=== PATIENT | female | born 1975 | race Two or more races ===

== ENCOUNTER 2017-10-16 08:16 | Outpatient (CLI) | payer OTHER ==
[~2017-10-16 08:16] MED LIST: PRENATAL CAPLE1 EACH PO; SYNTHROID50 MCG PO; ZANTAC150 M3
== END 2017-10-16 08:25 | disposition home or self-care (01) ==
LOC: LAB 08:16
DX: I70.0 Atherosclerosis of aorta (principal)

== ENCOUNTER 2017-10-16 08:16 | Outpatient (CLI) | payer OTHER | END 2017-10-16 16:48 | disposition home or self-care (01) | LOC: SONOGRAMA 08:16 | DX: R10.2 Pelvic and perineal pain (principal) ==

== ENCOUNTER 2018-08-09 07:41 | Outpatient (CLI) | payer OTHER | END 2018-08-09 07:46 | disposition home or self-care (01) | LOC: LAB 07:41 | DX: N91.1 Secondary amenorrhea (principal) ==

== ENCOUNTER 2018-08-09 08:22 | Outpatient (CLI) | payer OTHER | END 2018-08-09 08:24 | disposition home or self-care (01) | LOC: SONOGRAMA 08:22 | DX: N60.11 Diffuse cystic mastopathy of right breast (principal) ==

== ENCOUNTER 2020-07-28 09:31 | Outpatient (CLI) | payer OTHER | END 2020-07-28 09:56 | disposition home or self-care (01) | LOC: MAMO-SONO 09:31 | PROVIDERS: ATTEND Obstetrics & Gynecology | DX: N83.291 Other ovarian cyst, right side (principal); R92.0 Mammographic microcalcification found on diagnostic imaging of breast; Z12.31 Encounter for screening mammogram for malignant neoplasm of breast ==

== ENCOUNTER 2024-02-13 07:30 | Inpatient (IN) | payer OTHER ==
[2024-02-12 10:51] LABS: HEMATOCRIT 33.2 % (36.0-45.00); HEMOGLOBIN 10.7 g/dL (12.0-15.00); MEAN CELL VOLUME 78.5 fL (80.00-100.00); MEAN CORPUSCULAR HEMOGLOBIN 25.3 pg (27.00-32.0); MEAN CORPUSCULAR HGB CONC 32.2 g/dl (32.0-36.0); PLATELET COUNT 270 K/uL (150-450); RED BLOOD COUNT 4.23 M/uL (4.00-6.00)
[2024-02-12 11:16] LABS: INR 0.98; PARTIAL THROMBOPLASTIN TIME 30.2 SECONDS (22.0-34.0); PROTHROMBIN TIME 10.3 SECONDS (9.0-11.5)
[2024-02-12 11:27] LABS: URINE APPEARANCE Clear; URINE BILIRRUBIN Negative (NEGATIVE); URINE BLOOD Large; URINE COLOR Yellow; URINE GLUCOSE Negative (NEGATIVE); URINE LEUKOCYTE Small; URINE NITRATE Negative; URINE PROTEIN Trace (NEGATIVE); URINE UROBILINOGEN 0.2 E.U./dl
[2024-02-12 11:31] LABS: URINE BACTERIA 241.8 uL (0.0-1933); URINE EPITHELIAL CELLS 2.1 uL (0.0-38.8); URINE RBC 3734.2 uL (0.0-20.8); URINE WBC 105.1 uL (0.0-23.2)
[2024-02-12 11:31] LABS: ALBUMIN 3.6 gm/dL (3.4-5.0); BILIRUBIN TOTAL 0.3 mg/dL (0.3-1.2); CALCIUM 9.2 mg/dL (8.5-10.1); CREATININE SERUM 0.79 mg/dL (0.55-1.02); GFR 78.01; GLOBULINA 3.8 G/DL (2.4-3.5); POTASSIUM 4.33 mEq/L (3.5-5.1); TOTAL PROTEIN 7.4 gm/dL (6.4-8.2)
[~2024-02-13] VITALS: Ht 160 cm; Wt 111.1 kg
[~2024-02-13 07:30] MED LIST changes: +MAXFE CAPLET1 EAC1 PO
[2024-02-20] MEDS ORDERED: CEFAZOLIN SODIUM 1,000 MG VIAL IV ONE (08:15)
[2024-02-20] MEDS ORDERED: POVIDONE-IODINE 118 ML BOTT TOP ONE (08:15)
[2024-02-20] MEDS ORDERED: CITRIC ACID/SODIUM CITRATE 30 ML BLIST.PACK PO ONE (08:15)
[2024-02-20] MEDS ORDERED: SUGAMMADEX SODIUM 200 MG/2 ML VIAL IV ONE (09:45)
[2024-02-20] MEDS ORDERED: MEPERIDINE HCL/PF 50 MG/ML VIAL IM PRN (10:00)
[2024-02-20] MEDS ORDERED: RINGERS SOLUTION,LACTATED 1,000 ML IV SCH (10:00)
[2024-02-20] MEDS ORDERED: ONDANSETRON HCL 2 MG/ML VIAL IV PRN (10:00)
[2024-02-21] MEDS ORDERED: FERROUS SULFATE 325 MG TABLET.EC PO NR (08:00)
[2024-02-21] MEDS ORDERED: OxyCODONE HCL/APAP UD (PERCOCET) PO PRN (08:00)
[2024-02-21 09:23] LABS: HEMATOCRIT 27.1 % (36.0-45.00); MEAN CORPUSCULAR HGB CONC 32.9 g/dl (32.0-36.0); PLATELET COUNT 266 K/uL (150-450); RED BLOOD COUNT 3.43 M/uL (4.00-6.00); RED CELL DISTRIBUTION WIDTH 19.4 % (11.5-14.5)
[2024-02-21 09:26] LABS: HEMOGLOBIN 8.9 g/dL (12.0-15.00); MEAN CORPUSCULAR HEMOGLOBIN 25.9 pg (27.00-32.0)
[2024-02-21] MEDS ORDERED: DIPHENHYDRAMINE HCL 25 MG CAPSULE PO STA (17:25)
[2024-02-21] MEDS ORDERED: ACETAMINOPHEN WITH CODEINE 1 UDTAB TABLET PO SCH (20:00)
[2024-02-21] MEDS ORDERED: KETOROLAC TROMETHAMINE 10 MG TABLET PO SCH (20:00)
[2024-02-22] MEDS ORDERED: BISACODYL 10 MG/SUPP.RECT SUPP.RECT RECTAL NR (08:30)
[2024-02-22] MEDS ORDERED: FERROUS SULFATE 325 MG TABLET.EC PO SCH (09:00)
[2024-02-22] MEDS ORDERED: FAMOtidine 20 MG TABLET PO SCH (09:45)
== END 2024-02-23 12:56 | disposition home or self-care (01) | DRG 743 ==
LOC: ADM 07:30 → O/R 02-20 06:21 → OB/GYN 02-20 06:21 → EDSTATUS 02-21 07:30 → CIR.AMB 02-21 07:30 → OB/GYN 02-23 12:56
PROVIDERS: ADMIT Obstetrics & Gynecology; ATTEND Obstetrics & Gynecology
PROC: 0UT70ZZ Resection of Bilateral Fallopian Tubes, Open Approach (ICD-10-PCS; 2024-02-20)
PROC: 0UN20ZZ Release Bilateral Ovaries, Open Approach (ICD-10-PCS; 2024-02-20)
PROC: 0DNW0ZZ Release Peritoneum, Open Approach (ICD-10-PCS; 2024-02-20)
PROC: 0UT20ZZ Resection of Bilateral Ovaries, Open Approach (ICD-10-PCS; 2024-02-20)
PROC: 0UT90ZL Resection of Uterus, Supracervical, Open Approach (ICD-10-PCS; principal; 2024-02-20 11:15)
DX: D25.9 Leiomyoma of uterus, unspecified (principal); N80.03 Adenomyosis of the uterus; D49.59 Neoplasm of unspecified behavior of other genitourinary organ; Z20.822 Contact with and (suspected) exposure to COVID-19

== ENCOUNTER 2024-02-26 17:56 | Emergency (ER) | payer OTHER ==
[~2024-02-26] VITALS: Ht 157.5 cm; Wt 111.1 kg
[2024-02-26] MEDS ORDERED: CEFTRIAXONE SODIUM 2,000 MG VIAL IV ONE (19:15)
[2024-02-26] MEDS ORDERED: CEFTRIAXONE SODIUM 2,000 MG VIAL ONE (19:24)
[2024-02-26 19:48] LABS: HEMATOCRIT 27.7 % (36.0-45.00); MEAN CELL VOLUME 78.4 fL (80.00-100.00); MEAN CORPUSCULAR HEMOGLOBIN 25.6 pg (27.00-32.0); MEAN CORPUSCULAR HGB CONC 32.7 g/dl (32.0-36.0); PLATELET COUNT 366 K/uL (150-450); RED BLOOD COUNT 3.53 M/uL (4.00-6.00); RED CELL DISTRIBUTION WIDTH 19.2 % (11.5-14.5)
== END 2024-02-26 21:04 | disposition home or self-care (01) ==
LOC: ER 17:58
PROVIDERS: Emergency Medicine
DX: T81.89XA Other complications of procedures, not elsewhere classified, initial encounter (principal); Y92.89 Other specified places as the place of occurrence of the external cause